=== PATIENT | female | born 1965 | race Caucasian/White ===

== ENCOUNTER 2020-04-07 05:06 | Day surgery (SDC) | payer OTHER ==
[2020-04-03 18:10] VITALS: BMI 20.1
[2020-04-07] MEDS ORDERED: MIDAZOLAM HCL 2 MG/2 ML SINGLE DOSE VIAL ONE (11:09)
[2020-04-07] MEDS ORDERED: PROPOFOL 20 ML ONE (11:09)
--- NOTE | 2020-04-07 14:23 | HP ---
History & Physical Update - History History: No Change - Physical Physical: No Change - Assessment Assessment: No Change - Plan Plan: No Change (Consent signed and witnessed, all questions answered Planned Hysteroscopy, Myomectomy, D&C, Endometrial ablation Patient understands procedure might not be successful due to multifibroid nature of her uterus)
[2020-04-07] MEDS ORDERED: KETOROLAC TROMETHAMINE 30 MG/1 ML VIAL ONE (15:52)
[2020-04-07] MEDS ORDERED: ONDANSETRON 4 MG/2 ML VIAL IVPUSH PRN ×2 (16:22→16:35)
[2020-04-07] MEDS ORDERED: oxyCODONE HCL 5 MG TABLET PO PRN ×3 (16:22→16:35)
[2020-04-07] MEDS ORDERED: LACTATED RINGERS SOLUTION 1,000 ML IV SCH (16:30)
[2020-04-07] MEDS ORDERED: IBUPROFEN 800 MG/8 ML IJ IVPB PRN (16:35)
[2020-04-07] MEDS ORDERED: IBUPROFEN 600 MG TABLET (FP) PO PRN (16:35)
--- NOTE | 2020-04-07 16:41 | OP ---
Operative Note - Note: Operative Date: 04/07/20 Pre-Operative Diagnosis: 54yo with Menorhagia, recieving iron transfusions, fibroid uterus Operation: Hysteroscopy, D&C, Endometrial ablation Findings: 16week size uterus Atrophic uterine fundus polypoid tissue low uterine segment, sampled Post-Operative Diagnosis: Same as Pre-op Surgeon: Adali Foy Anesthesiologist/SOCIAL [employer] MARKETING MANAGER: Malorie Hdez MD Anesthesia: General Specimens Removed: Endometrial curettings Estimated Blood Loss (mls): 1 Instrument used (Debridements only): Genesys HTA Drains, Volume Out (mls): 200 Fluid Volume Replaced (mls): 800 Operative Report Dictated: Yes
[2020-04-07] MEDS ORDERED: ELECTROLYTE-148 SOLN 1,000 ML IV SCH (16:45)
[2020-04-07 17:44] VITALS: BP 130/80; PULSE 80; TEMP 97.1
--- NOTE | 2020-04-08 08:13 | OP ---
DATE OF OPERATION: 04/07/2020 PREOPERATIVE DIAGNOSIS: A 54-year-old with menorrhagia receiving iron transfusions; fibroid uterus. OPERATION: Hysteroscopy, dilation and curettage, endometrial ablation. FINDINGS: A 16-week size uterus, atrophic uterine fundus, polypoid tissue in lower uterine segment sampled. Successful HTA Genesys endometrial ablation. POSTOPERATIVE DIAGNOSIS: A 54-year-old with menorrhagia receiving iron transfusions; fibroid uterus. SURGEON: Adali Foy MD ANESTHESIOLOGIST: Malorie Hdez MD ANESTHESIA: General. SPECIMENS REMOVED: Endometrial curettings. DESCRIPTION OF OPERATIVE PROCEDURE: After assuring informed consent, patient was brought to the operating room where she was placed in dorsal lithotomy position. Vagina and perineum were prepped and draped in a sterile fashion. The Genesys hysteroscope was assembled and primed. Bladder was emptied with straight catheterization. The Coello retractors were placed into the vagina. Anterior cervical lip was articulated with single-tooth tenaculum. Cervix was gradually dilated to allow Genesys hysteroscope to be placed inside the cervix and uterus without any difficulty. Diagnostic hysteroscopy performed with above findings. Subsequently the hysteroscope withdrawn from the uterine cavity, instrument paused and sharp curettage performed. Endometrial curettings sent for pathology. The hysteroscope reintroduced once more and 10-minute ablation cycle at approximately 90 degrees Celsius was performed without any difficulty. The posterior fornix gauze was placed. Two-minute cooling cycle performed. Uterine cavity visualized postprocedure and found to be adequately blanched. Subsequently all instruments removed from uterus, cervix and vagina. Estimated blood loss 1 mL. Fluid received by patient 800 mL and she drained 200 mL of urine. Instrument and sponge count was correct x2. Patient was brought to the recovery room in stable condition. Ritu [id number]
--- NOTE | 2020-04-09 18:13 | PATH ---
Surgical Pathology Report Patient Name: BRANDEN WAGONER [facility]. Rec. #: [id number] /Age/Gender: 1965 (Age: 54) / F Account: [id number] Location: [facility] SURGICAL Taken: 04/07/2020 Received: 04/08/2020 Reported: 04/09/2020 Physicians: Adali Foy M.D. Specimen(s) Received ENDOMETRIAL CURETTINGS Clinical History Fibroid uterus, menorrhagia Final Diagnosis ENDOMETRIAL CURETTINGS, DILATION AND CURETTAGE: POLYPOID SECRETORY ENDOMETRIUM, SCANT FIBROMUSCULAR TISSUE, AND BENIGN CERVICAL TISSUE. Electronically Signed Alanis Avina M.D. Gross Description Received in formalin labeled "endometrial curettings," is a 2.3 x 1.6 x 0.3 cm aggregate of acevedo soft tissue fragments. The formalin is filtered and the specimen is entirely submitted in one cassette. /04/08/2020 saudi/04/08/2020
== END 2020-04-07 17:50 | disposition home or self-care (01) ==
LOC: JASU-SURG 05:06
PROVIDERS: ATTEND Obstetrics & Gynecology
PROC: 0U5B8ZZ Destruction of Endometrium, Via Natural or Artificial Opening Endoscopic (ICD-10-PCS; principal; 2020-04-07 11:30)
DX: N92.0 Excessive and frequent menstruation with regular cycle (principal); D25.9 Leiomyoma of uterus, unspecified
CPT/HCPCS: 71046-TC-FY; 84703; 88305-TC; 94760